=== PATIENT | female | born 1930 | race Caucasian/White ===

== ENCOUNTER → 2018-04-20 | Outpatient (CLI) | payer MEDICARE, BC ==
[~2018-04-20] MED LIST: ALLOPURINOL 10100 M1 PO; ATENOLOL 50MG T50 M1 PO; ELIQUIS5 MG PO; FEVERALL JR 32325 M1 RECTAL; HYDROCODON-ACE1 EAC7 PO; LEVOXYL25 MCG PO; LIPITOR 20 MG T20 M1 PO; METAMUCIL1 EAC1 PO; MYLANTA PO; NORVASC5 MG PO; PERCOCET PO; SODIUM BICARBO650 M3 PO; VITAMIN D1000 UNI1 PO
== END ==
LOC: M.MRI
DX: S83.232A Complex tear of medial meniscus, current injury, left knee, initial encounter (principal); S83.282A Other tear of lateral meniscus, current injury, left knee, initial encounter; S73.109A Unspecified sprain of unspecified hip, initial encounter; M25.462 Effusion, left knee; M25.762 Osteophyte, left knee; M71.22 Synovial cyst of popliteal space [Baker], left knee; M17.0 Bilateral primary osteoarthritis of knee; X58.XXXA Exposure to other specified factors, initial encounter; Y93.89 Activity, other specified; Y92.89 Other specified places as the place of occurrence of the external cause; Y99.8 Other external cause status

== ENCOUNTER 2018-05-04 06:29 | Inpatient (IN) | payer MEDICARE, BC ==
[2018-04-22 09:44] LABS: URINE BILIRUBIN NEGATIVE (Negative); URINE BLOOD NEGATIVE (Negative); URINE CLARITY CLEAR; URINE COLOR YELLOW; URINE GLUCOSE-RANDOM NEGATIVE (Negative); URINE KETONES NEGATIVE (Negative); URINE LEUKOCYTES-REFLEX NEGATIVE (Negative); URINE NITRITE-REFLEX NEGATIVE (Negative); URINE PROTEIN NEGATIVE (Negative); URINE UROBILINOGEN 0.2 E.U./dl (0.2-1.0)
[2018-04-22 09:48] LABS: HEMATOCRIT 37.7 % (37.0-47.0); HEMOGLOBIN 12.3 gm/dL (12.0-15.0); MCH 29.9 pg (26.0-34.0); MCHC 32.6 g/dL (28.0-37.0); MCV 91.5 fL (80.0-100.0); MPV 9.5 fl. (7.2-11.1); RBC 4.12 mil/uL (4.20-5.00); RDW-CV 15.1 % (10.5-14.5); WBC 6.5 thou/uL (4.0-11.0)
[2018-04-22 09:50] LABS: INR 1.2; PROTIME 11.2 Seconds (9.20-11.50)
[2018-04-22 09:55] LABS: ALBUMIN 3.5 g/dL (3.4-5.0); CALCIUM 8.5 mg/dL (8.5-10.1); CREATININE 1.5 mg/dL (0.6-1.3); POTASSIUM 3.7 mmol/L (3.5-5.1); TOTAL BILIRUBIN 0.6 mg/dL (<0.1-1.0); TOTAL PROTEIN 6.8 g/dL (6.4-8.2)
--- NOTE | 2018-04-22 15:57 | EKG ---
[place] [address] ELECTROCARDIOGRAM REPORT Name: MATTHEW VELÁZQUEZ Room: PRE IN [facility]#: [id number] Admission: Attend Phys: Frank Kwok Discharge: Date of : [birth year] Report #: [id number] THIS REPORT FOR: //name// [facility] Test Date: 2018-04-22 Test Time: 09:10:27 Pat Name: MATTHEW VELÁZQUEZ Department: Room: Gender: F Wireless Operator: : 1930 Requested By: Chadd James Order Number: [id number] Reading MD: Juan Pablo Ibrahim Measurements Intervals [place] Rate: 49 P: 40 NH: 180 QRS: 23 QRSD: 127 T: 9 QT: 474 QTc: 428 Interpretive Statements Sinus bradycardia Nonspecific intraventricular conduction delay No previous ECG available for comparison Electronically Signed On 04-22-2018 15:57:07 CDT by Juan Pablo Ibrahim [email or web address] <ELECTRONICALLY SIGNED> By: Juan Pablo Ibrahim MD, [facility] 04/22/18 1557 0910 0910 Juan Pablo Ibrahim MD, FACC /EPI
[~2018-05-04] VITALS: Ht 157.5 cm; Wt 86.2 kg
[~2018-05-04 06:29] MED LIST changes: -FEVERALL JR 32325 M1 RECTAL; -HYDROCODON-ACE1 EAC7 PO; -METAMUCIL1 EAC1 PO; -MYLANTA PO; -PERCOCET PO
[2018-05-04 09:53] VITALS: BP 142/61
[2018-05-04 16:17] VITALS: BP 137/75
[2018-05-04 21:50] VITALS: BP 158/61
[2018-05-05] VITALS: BP 157/63
[2018-05-05 04:10] VITALS: BP 171/57
[2018-05-05 04:18] LABS: HEMATOCRIT 34.6 % (37.0-47.0); HEMOGLOBIN 11.6 gm/dL (12.0-15.0)
[2018-05-05 08:15] VITALS: BP 171/64
[2018-05-05 09:26] LABS: CREATININE 1.4 mg/dL (0.6-1.3); POTASSIUM 4.3 mmol/L (3.5-5.1)
[2018-05-05] MEDS ORDERED: PERCOCET PO (10:21)
[2018-05-05 15:51] VITALS: BP 149/71
[2018-05-05 20:00] VITALS: BP 150/48
[2018-05-06 00:18] VITALS: BP 163/56
[2018-05-06 04:00] VITALS: BP 190/58
[2018-05-06 04:25] LABS: HEMATOCRIT 32.5 % (37.0-47.0); HEMOGLOBIN 10.8 gm/dL (12.0-15.0); MCH 30.2 pg (26.0-34.0); MCHC 33.2 g/dL (28.0-37.0); MCV 91.1 fL (80.0-100.0); MPV 9.4 fl. (7.2-11.1); RBC 3.56 mil/uL (4.20-5.00); WBC 11.5 thou/uL (4.0-11.0)
[2018-05-06 04:45] LABS: CALCIUM 7.5 mg/dL (8.5-10.1); CREATININE 1.2 mg/dL (0.6-1.3); MAGNESIUM 1.9 mg/dL (1.8-2.4); POTASSIUM 3.8 mmol/L (3.5-5.1)
[2018-05-06 08:17] VITALS: BP 146/45
[2018-05-06 11:27] VITALS: BP 146/45
[2018-05-06 15:38] VITALS: BP 123/41
[2018-05-07 04:23] VITALS: BP 152/56
[2018-05-07 08:00] VITALS: BP 109/39
[2018-05-07 10:12] VITALS: BP 109/39
[2018-05-07] MEDS ORDERED: FEVERALL JR 32325 M1 RECTAL (14:48)
[2018-05-07] MEDS ORDERED: METAMUCIL1 EAC1 PO (14:50)
[2018-05-07] MEDS ORDERED: MYLANTA PO (14:51)
[2018-05-07] MEDS ORDERED: HYDROCODON-ACE1 EAC7 PO (14:54)
--- NOTE | 2018-05-25 10:42 | OP ---
[facility] [address] [place] [address] OPERATIVE REPORT Name: MICHELIKERSHERRILLMATTHEW Jane Room: [address] M.R.#: [id number] Admission: 05/04/18 Attend Phys: Frank Kwok Discharge: 05/07/18 Date of : [birth year] Report #: [id number] THIS REPORT FOR: //name// CC: Chadd Aquino DATE OF SERVICE: 05/04/2018 PREOPERATIVE DIAGNOSIS: Left knee osteoarthritis. POSTOPERATIVE DIAGNOSIS: Left knee osteoarthritis. PROCEDURE: Left total knee arthroplasty. ANESTHESIA: General endotracheal. ESTIMATED BLOOD LOSS: 50 mL. SURGEON: Chadd James II, DO. CONTROL ROOM OPERATOR: NILE Stewart. ANTIBIOTICS: Ancef preoperatively. DRAINS: Medium Hemovac. COMPLICATIONS: None. CONDITION: Stable to recovery room. IMPLANTS: Listed in the operative record and progress note. BRIEF HISTORY: The patient was seen in the preoperative area. A preoperative H and P was performed. Site was marked, questions were answered. Risks and benefits discussed with the patient in detail about surgery. The patient wished to proceed assuming all risks. DESCRIPTION OF PROCEDURE: The patient was taken to the operative suite and placed supine on the OR table, given appropriate anesthesia. A well-padded tourniquet applied to the upper thigh, which was inflated to 300 mmHg after gravity exsanguination. The operative knee was sterilely prepped and draped. Surgery began by midline incision. This was carried down to subcutaneous tissues down to bone. Patella was everted and excess soft tissue was removed from around the femur. The femoral cutting block was then applied, checked with a drop evan for rotational alignment, pinned in appropriate position and [facility] [address] [place] [address] OPERATIVE REPORT Name: MATTHEW VELÁZQUEZ Room: [address] [place] .R.#: [id number] Admission: 05/04/18 Attend Phys: Frank Kwok Discharge: 05/07/18 Date of : [birth year] Report #: [id number] appropriate cuts were made. A 4-in-1 cutting block was then applied, checked for rotational alignment, pinned in appropriate position and appropriate cuts were made. Tibia was then exposed. Excess meniscus was removed. Retractor was placed on the collateral ligaments. Tibial cutting block was then applied, pinned in appropriate position and checked with drop evan for rotational alignment and slope. The appropriate cut was made. The tibia bone was removed. The tibial base plate was then applied, checked for rotational alignment with the drop evan, pinned in appropriate position. Femur was then applied and box cut was reamed. This was then trialed with the appropriate spacer, which showed excellent fit and fill and excellent stability of knee throughout all range of motion. The patella was then reamed in appropriate fashion and sized to appropriate size. Three peg holes were drilled. It was then trialed and showed excellent flexion and extension and excellent tracking of the patella within the groove. These trials were then removed. The tibia was punched in appropriate fashion. Bone ends were cleansed with Pulsavac irrigation. Cement was mixed and applied to the final implants. These were malleted into position and with the knee in extension and compressed to allow the cement to cure. After it cured, excess was removed utilizing a [place] and osteotome. The wound was then copiously irrigated and the final cement was then malleted into position. The tourniquet was deflated. Hemostasis was maintained with electrocautery. The pain cocktail was injected. PRP gel was sprayed through internal aspects of the knee. A medium Hemovac drain was applied. Capsule was closed with #2 FiberWire and 1 Vicryl in [id number] fashion. Skin was closed with 2-0 Vicryl and a running 3-0 Monocryl and Dermabond. Sterile dressing was applied. Colin wrap and PolarCare applied. The patient transported to recovery room in stable condition. Counts were correct throughout the procedure. <ELECTRONICALLY SIGNED> By: Chadd James II, DO 05/25/18 1042 [id number] [id number] James II, DO /nt
== END 2018-05-07 15:32 | DRG 470 ==
LOC: M.PRE → M.ORTHSURG 08:49 → M.TBA 08:49 → M.PRE 09:40 → M.ORTHSURG 10:28 → M.PRE 13:10 → M.ORTHSURG 13:22
PROVIDERS: Internal Medicine; Orthopaedic Surgery; ADMIT Internal Medicine
PROC: 0SRD0J9 Replacement of Left Knee Joint with Synthetic Substitute, Cemented, Open Approach (ICD-10-PCS; principal; 2018-05-05)
DX: M17.12 Unilateral primary osteoarthritis, left knee (principal); I12.9 Hypertensive chronic kidney disease with stage 1 through stage 4 chronic kidney disease, or unspecified chronic kidney disease; K58.9 Irritable bowel syndrome, unspecified; E03.9 Hypothyroidism, unspecified; E78.00 Pure hypercholesterolemia, unspecified; N18.3 Chronic kidney disease, stage 3 (moderate); Z86.73 Personal history of transient ischemic attack (TIA), and cerebral infarction without residual deficits; Z86.711 Personal history of pulmonary embolism; Z79.01 Long term (current) use of anticoagulants; Z88.6 Allergy status to analgesic agent; Z88.8 Allergy status to other drugs, medicaments and biological substances; Z79.899 Other long term (current) drug therapy; Z90.710 Acquired absence of both cervix and uterus; Z98.42 Cataract extraction status, left eye; Z98.41 Cataract extraction status, right eye; Z85.828 Personal history of other malignant neoplasm of skin; Z87.891 Personal history of nicotine dependence